=== PATIENT | male | born 1965 | race Two or more races ===

== ENCOUNTER 2019-12-15 10:09 | Day surgery (SDC) | payer OTHER | END 2019-12-15 15:15 | disposition home or self-care (01) | LOC: AMB-ENDOS 10:09 | PROVIDERS: ATTEND Surgery | DX: D12.0 Benign neoplasm of cecum (principal); D12.5 Benign neoplasm of sigmoid colon; D12.8 Benign neoplasm of rectum; K64.8 Other hemorrhoids ==

== ENCOUNTER 2021-11-08 12:40 | Emergency (ER) | payer OTHER ==
[~2021-11-08] VITALS: Ht 185.4 cm; Wt 113.4 kg
[2021-11-08] MEDS ORDERED: PEPCID COMPLETE (13:35)
[2021-11-08] MEDS ORDERED: AMLODIPINE BESYL5 MG PO (13:35)
[2021-11-08] MEDS ORDERED: LOSARTAN POTASS50 MG PO (13:36)
[2021-11-08] MEDS ORDERED: OMEGA-3 ACID ETH1 GM PO (13:36)
[2021-11-08] MEDS ORDERED: GAS RELIEF180 MG PO (13:36)
[2021-11-08] MEDS ORDERED: LABETALOL HCL100 MG PO (13:36)
== END 2021-11-08 21:47 | disposition home or self-care (01) ==
LOC: ER 12:40 → EDBD 12:46 → ER 21:47
DX: K57.32 Diverticulitis of large intestine without perforation or abscess without bleeding (principal); R10.9 Unspecified abdominal pain; I10 Essential (primary) hypertension; Z20.822 Contact with and (suspected) exposure to COVID-19; N28.1 Cyst of kidney, acquired